=== PATIENT | male | born 1940 | race Caucasian/White ===

== ENCOUNTER 2018-06-16 09:16 | Day surgery (SDC) | payer MEDICARE, OTHER ==
[2018-06-16] MEDS ORDERED: FENTAnyl 50 MCG/ML VIAL IV (10:00)
[2018-06-16] MEDS ORDERED: ONDANSETRON 4 MG INJ IV (10:00)
[2018-06-16] MEDS ORDERED: EPHEDrine SULFATE 50 MG/5 ML SYG IV (10:00)
[2018-06-16] MEDS ORDERED: LABETALOL HCL 20MG INJ IV (10:00)
[2018-06-16] MEDS ORDERED: morphine (1 MG/ML) 10ML SYRINGE IV (10:00)
[2018-06-16] MEDS ORDERED: hydrALAzine 20 MG INJ IV (10:00)
[2018-06-16] MEDS ORDERED: METOCLOPRAMIDE 10 MG INJ IV (10:00)
[2018-06-16] MEDS ORDERED: OXYCODONE/ACETAMINOPHEN (5/325) TAB PO (10:00)
[2018-06-16] MEDS ORDERED: PROPOFOL 40 ML (11:13)
== END 2018-06-16 11:20 | disposition home or self-care (01) ==
LOC: GIL 09:16
DX: R19.4 Change in bowel habit (principal); Z86.010 Personal history of colon polyps; K64.8 Other hemorrhoids; K64.4 Residual hemorrhoidal skin tags; K57.30 Diverticulosis of large intestine without perforation or abscess without bleeding; E11.9 Type 2 diabetes mellitus without complications; E78.5 Hyperlipidemia, unspecified; I25.10 Atherosclerotic heart disease of native coronary artery without angina pectoris; E03.9 Hypothyroidism, unspecified
CPT/HCPCS: 45378